=== PATIENT | female | born 1990 | race African-American/Black ===

== ENCOUNTER 2017-04-07 08:51 | Emergency (ER) | payer MEDICAID, OTHER ==
[~2017-04-07] VITALS: Ht 170.2 cm; Wt 99.8 kg
--- NOTE | 2017-04-07 09:19 | Emergency Room Report ---
History of Present Illness General Chief Complaint: Skin Rash/Abscess Source: Patient Present Illness HPI The patient presents with right sided swelling and pain in her throat. 3 weeks ago she had a peritonsillar abscess that was aspirated with a needle. She continued to have drainage after the aspiration. She was treated with 10 days of Augmentin and 5 days of dexamethasone. It got better. She started to have recurrence of pain. It started draining again last night. She has no change in her voice and the pain is not severe at this time. She denies any fevers or chills. She has no trouble swallowing. No pain with opening her mouth. 2 months ago the patient delivered a baby boy. There no complications with the delivery. She's breast-feeding at this time. No NVD, dysuria, abdominal pain, cough, rashes. 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 Reviewed Nursing Documentation: PMH: Agreed, PSxH: Agreed Nursing Documentation-PMH Past Medical History: No Stated History Review of Systems All Other Systems: negative except mentioned in HPI Physical Exam Vital Signs Date Time Temp Pulse Resp B/P (MAP) Pulse Ox O2 Delivery O2 Flow Rate FiO2 04/07/17 08:57 97.8 75 16 128/78 97 Room Air 97.9 Sp02 EP Interpretation: reviewed, normal General Appearance: well appearing, no apparent distress, GCS 15 Head: normocephalic, atraumatic Eyes: bilateral eye normal inspection, bilateral eye PERRL ENT: hearing grossly normal, normal voice, moist mucus membranes, tonsillar swelling - R with exudate, airway patent Neck: full range of motion, supple, no bony tend Respiratory: lungs clear, no respiratory distress, speaking full sentences Gastrointestinal: normal inspection Musculoskeletal: gait/station normal Neurologic: alert, grossly normal Psychiatric: mood/affect normal Skin: no rash Medical Decision Making Diagnostic Impression: Primary Impression: Peritonsillar abscess Additional Impression: Normal breast feeding ER Course Patient presents with a peritonsillar abscess. She has no problems opening her mouth been no change in voice at this time and pain is minimal. There was spontaneous drainage last night. At this point incision and drainage or aspiration is not indicated. The patient will be retreated with Augmentin and dexamethasone. She is also given referrals to ear nose and throat specialties. Discussed pumping and dumping. Also probability of thrush in infant. Also discussed that if infection is worsening, might need I and D (doubtful at this time). The patient is stable for outpatient observation and treatment. Status: improved Disposition: HOME, SELF-CARE Condition: Improved Scripts Dexamethasone (DEXAMETHASONE) 4 Mg Tablet 4 MG PO DAILY, #5 TAB Prov: Deonte De La Garza M.D. 04/07/17 Amoxicillin/Potassium Clav 500-125 Tablet* (AUGMENTIN 500-125 TABLET*) 1 Each Tablet 1 TAB ORAL THREE TIMES A DAY, #21 TAB Prov: Deonte De La Garza M.D. 04/07/17 Deonte De La Garza M.D. Apr 07, 2017 09:19
[2017-04-07] MEDS ORDERED: AUGMENTIN 500-1 EACH ORAL (09:23)
[2017-04-07] MEDS ORDERED: DEXAMETHASONE4 M1 PO (09:23)
[2017-04-07 09:35] VITALS: BP 128/78
[2017-04-07 09:36] VITALS: BP 128/78
== END 2017-04-07 09:39 | disposition home or self-care (01) ==
LOC: EMR 09:24
DX: J36 Peritonsillar abscess (principal)
CPT/HCPCS: 99283

== ENCOUNTER 2019-07-28 13:32 | Emergency (ER) | payer OTHER ==
[~2019-07-28] VITALS: Ht 167.6 cm; Wt 78.0 kg
[~2019-07-28 13:32] MED LIST: AUGMENTIN 500-1 EACH ORAL; DEXAMETHASONE4 M1 PO
[2019-07-28 13:47] VITALS: BP 112/73
--- NOTE | 2019-07-28 13:47 | NUR ---
ED Nurse Note: pt ambulated into ed from home [place] vaginal redness and itching x 1 week. Pt states itching has subsided but notes vaginal discharge. Awaiting ERMD at bedside
--- NOTE | 2019-07-28 13:59 | NUR ---
ED Nurse Note: ERMD at bedside
--- NOTE | 2019-07-28 14:04 | Emergency Room Report ---
History of Present Illness General Chief Complaint: Vaginal Source: Patient Present Illness HPI 29-year-old female with no symptom past medical history here complaining of 1 week of white clumpy vaginal discharge and pruritus. Patient reports that she has a history of recurrent yeast infection. Denies any fishy odor. Reports that she has been using [id number] Monistat with some improvement. Denies dysuria urinary symptoms. Reports that she is sexually active with her . Is requesting STD testing however when told that we do offer her the treatment she decides to rather be tested first and I gave her a list of STD clinics to go get get tested. Denies fever and chills, nausea vomiting, chest pain, and other associate symptoms. Denies . 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 Patient History Past Medical History: see triage record Past Surgical History: none Pertinent Family History: none Last Menstrual Period: 07/08/19 Now: No Immunizations: UTD Reviewed Nursing Documentation: PMH: Agreed; PSxH: Agreed Nursing Documentation-PMH Past Medical History: No History, Except For Review of Systems All Other Systems: negative except mentioned in HPI Physical Exam Vital Signs Date Time Temp Pulse Resp B/P (MAP) Pulse Ox O2 Delivery O2 Flow Rate FiO2 07/28/19 13:37 98.2 65 17 112/73 (86) 100 Room Air Sp02 EP Interpretation: reviewed, normal General Appearance: no apparent distress, alert, GCS 15, non-toxic Head: normocephalic, atraumatic Eyes: bilateral eye normal inspection, bilateral eye PERRL ENT: hearing grossly normal, normal pharynx, no angioedema, normal voice Neck: full range of motion, supple/symm/no masses Respiratory: chest non-tender, lungs clear, normal breath sounds, speaking full sentences Cardiovascular #1: regular rate, rhythm, no edema Gastrointestinal: normal bowel sounds, non tender, soft, non-distended, no guarding, no rebound Genitourinary: no CVA tenderness, other - No irritation, ulceration or lesions noted in external vaginal canal Musculoskeletal: back normal Neurologic: alert, motor strength/tone normal, oriented x3, sensory intact, responsive, speech normal Psychiatric: judgement/insight normal, memory normal, mood/affect normal, no suicidal/homicidal ideation Skin: no rash Lymphatic: no adenopathy Medical Decision Making PA Attestation All my diagnosis and treatment plans were reviewed ad discussed with my supervising physician Dr. Crum Diagnostic Impression: Primary Impression: Vaginitis ER Course 29-year-old female with no symptom past medical history here complaining of 1 week of white clumpy vaginal discharge and pruritus. Patient reports that she has a history of recurrent yeast infection. Denies any fishy odor. Reports that she has been using [id number] Monistat with some improvement. Denies dysuria urinary symptoms. Reports that she is sexually active with her . Is requesting STD testing however when told that we do offer her the treatment she decides to rather be tested first and I gave her a list of STD clinics to go get get tested. Denies fever and chills, nausea vomiting, chest pain, and other associate symptoms. Denies . Ddx considered but are not limited to: UTI, pyelonephritis, urinary incontinence , prolapsed bladder, vaginitis Vital signs: are WNL, pt. is afebrile H&PE are most consistent with: Vaginitis most likely due to yeast infection ORDERS: No urine needed at this time patient does not experience any urinary symptoms, Diflucan, clotrimazole cream ED INTERVENTIONS: None required at this time. DISCHARGE: At this time pt. is stable for d/c to home. Will provide printed patient care instructions, and any necessary prescriptions. Care plan and follow up instructions have been discussed with the patient prior to discharge. Gave a list of STD clinics, take medication as directed, follow primary doctor , if worsening symptoms return to the emergency room EKG Diagnostic Results ASA given to the pt in ED: No Last Vital Signs Date Time Temp Pulse Resp B/P (MAP) Pulse Ox O2 Delivery O2 Flow Rate FiO2 07/28/19 13:37 98.2 65 17 112/73 (86) 100 Room Air Disposition: HOME, SELF-CARE Condition: Stable Scripts Clotrimazole* (LOTRIMIN*) 15 Gm Cream..g. 1 APPLIC TOPIC TWICE A DAY, #15 GM Prov: Jannet Cardenas 07/28/19 Fluconazole (FLUCONAZOLE) 150 Mg Tablet 150 MG ORAL ONCE for 1 Day, #2 TAB 0 Refills take first tablet today, if no improvement in 1 week, take the second tablet Prov: Jannet Cardenas 07/28/19 Patient Instructions: Vaginitis, [id number] Additional Instructions: Take medication as directed, if worsening symptoms return to the emergency room. Follow-up primary doctor, a list of STD clinics with attached to your aftercare instructions Jannet Cardenas Jul 28, 2019 14:04
--- NOTE | 2019-07-28 14:05 | NUR ---
ED Nurse Note: UA sent to lab
[2019-07-28] MEDS ORDERED: CLOTRIMAZOLE15 GM TOPIC (14:06)
[2019-07-28] MEDS ORDERED: FLUCONAZOLE150 MG ORAL (14:06)
[2019-07-28 14:22] VITALS: BP 112/73
--- NOTE | 2019-07-28 14:22 | NUR ---
ER DISCHARGE NOTE: Patient is cleared to be discharged home per ERMD, pt is aox4, on room air, with stable vital signs. pt was given dc and prescription instructions, pt was able to verbalize understanding, pt id band removed. pt is able to ambulate with steady gait. pt took all belongings.
== END 2019-07-28 14:22 | disposition home or self-care (01) ==
LOC: EMR 13:45
DX: N76.0 Acute vaginitis (principal)
CPT/HCPCS: 99282

== ENCOUNTER 2020-03-14 09:40 | Emergency (ER) | payer MEDICAID, OTHER ==
[~2020-03-14] VITALS: Ht 162.6 cm; Wt 77.1 kg
[~2020-03-14 09:40] MED LIST changes: +CLOTRIMAZOLE15 GM TOPIC; +FLUCONAZOLE150 MG ORAL
[2020-03-14 10:12] VITALS: BP 110/70
[2020-03-14] MEDS ORDERED: AUGMENTIN 875-1 EAC1 ORAL (10:14)
[2020-03-14] MEDS ORDERED: LIDOCAINE VISC100 ML ORAL (10:14)
[2020-03-14] MEDS ORDERED: Augmentin 875mg Tab ORAL ONE (10:15)
--- NOTE | 2020-03-14 10:19 | Emergency Room Report ---
History of Present Illness General Chief Complaint: Sore Throat Source: Patient Present Illness HPI Patient is a 29-year-old female presents for increased sore throat for the past 4 to 5 days. Reports of increased pain with swallowing. Reports having some slight change to her voice. Denies any fever. Prior history of tonsillar abscess. Denies any cough. Slight increased left-sided ear pain intermittentl y. Denies any chance of . Had been having intermittent left-sided ear popping. Denies any neck stiffness. Denies prior history of immunocompromise. 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 Patient History Past Medical History: see triage record Now: No - 02/16/20 Reviewed Nursing Documentation: PMH: Agreed; PSxH: Agreed Nursing Documentation-PMH Past Medical History: No Stated History Review of Systems All Other Systems: negative except mentioned in HPI Physical Exam Vital Signs Date Time Temp Pulse Resp B/P (MAP) Pulse Ox O2 Delivery O2 Flow Rate FiO2 03/14/20 10:04 97.9 72 16 110/70 (83) 98 Room Air Sp02 EP Interpretation: reviewed, normal General Appearance: normal inspection, well appearing, no apparent distress, alert, GCS 15 Head: atraumatic ENT: normal ENT inspection, hearing grossly normal, normal voice, tonsillar swelling - Left-sided tonsillar swelling and erythema, no uvular deviation, no trismus Neck: normal inspection, full range of motion, supple, no bony tend Respiratory: normal inspection, lungs clear, normal breath sounds, no respiratory distress, no retraction, no wheezing Cardiovascular #1: regular rate, rhythm, no edema Gastrointestinal: normal inspection, normal bowel sounds, non tender, soft, no guarding, no hernia Genitourinary: no CVA tenderness Musculoskeletal: normal inspection, back normal, normal range of motion Neurologic: alert, responsive, speech normal, normal inspection Psychiatric: normal inspection, judgement/insight normal, mood/affect normal Medical Decision Making Diagnostic Impression: Primary Impression: Acute tonsillitis ER Course Patient presents for sore throat. Differential diagnosis include was not limited to tonsillitis, abscess, ear infection among others. Patient has a benign exam and does not appear to require any imaging or laboratory testing at this time. Patient appears to have a bacterial tonsillitis will be treated with antibiotics. She was given oral steroids after informing risk benefits and alternatives. Patient was advised to follow-up with primary care physician for recheck. She is advised to gargle with salt water. She is to return if worse. This medical record is generated with [employer] customs broker software. There may be some customs broker discrepancies related to use of this software Last Vital Signs Date Time Temp Pulse Resp B/P (MAP) Pulse Ox O2 Delivery O2 Flow Rate FiO2 03/14/20 10:12 97.9 16 110/70 98 Room Air 03/14/20 10:04 72 Status: improved Disposition: HOME, SELF-CARE Condition: Stable Scripts Lidocaine HCl 2% Viscous (Lidocaine HCl 2% Viscous) 100 Ml Solution 15 ML ORAL QID for pain, #100 ML Prov: Cesar Crum MD 03/14/20 Amoxicillin/Potassium Clav 875-125* (AUGMENTIN 875-125 TABLET*) 1 Each Tablet 1 TAB ORAL TWICE A DAY, #14 TAB Prov: Cesar Crum MD 03/14/20 Referrals: NON PHYSICIAN (PCP) Patient Instructions: Tonsillitis Additional Instructions: Follow up with primary care doctor for recheck. Gargle with salt water three times a day. Return if worse. Cesar Crum MD Mar 14, 2020 10:19
[2020-03-14 10:47] VITALS: BP 120/70
--- NOTE | 2020-03-14 10:49 | NUR ---
discharged home with instruction and rx follow up with pmd
== END 2020-03-14 10:50 | disposition home or self-care (01) ==
LOC: EMR 09:44
DX: J03.90 Acute tonsillitis, unspecified (principal)
CPT/HCPCS: J8540; Z7502; 99282

== ENCOUNTER 2020-03-16 20:32 | Emergency (ER) | payer MEDICAID ==
[~2020-03-16] VITALS: Ht 170.2 cm; Wt 78.5 kg
[~2020-03-16 20:32] MED LIST changes: +AUGMENTIN 875-1 EAC1 ORAL; +LIDOCAINE VISC100 ML ORAL
[2020-03-16] MEDS ORDERED: Omnipaque-300 100ml vial INJ PRN (21:00)
[2020-03-16] MEDS ORDERED: cefTRIAXone 1 GM in NS 55 ML IVPB ONE (21:00)
--- NOTE | 2020-03-16 21:00 | NUR ---
ED Nurse Note: Recieved pt walk in from home with c/o severe sore throat, pt was seen here 2 days ago, placed on oral antibiotics but states pain has worsened and she cant eat, swallowing is painful, no swelling noted, no sob or labored breathing, also states pain radiated to ear, pt states has hx of abcess and she thinks it is there again, pain at 7/10, no nausea, fevers, cough or any other complaints or discomforts.
[2020-03-16 21:42] LABS: BASOPHILS % (AUTO) 1.1 % (0.0-2.0); EOSINOPHILS % (AUTO) 1.1 % (0.0-3.0); HEMOGLOBIN 11.9 G/DL (12.0-16.0); LYMPHOCYTES % (AUTO) 29.3 % (20.0-45.0); MEAN CORPUSCULAR VOLUME 93 FL (80-99); MONOCYTES % (AUTO) 12.4 % (1.0-10.0); NEUTROPHILS % (AUTO) 56.1 % (45.0-75.0); PLATELET COUNT 246 K/UL (150-450); RED BLOOD COUNT 4.08 M/UL (4.20-5.40); WHITE BLOOD COUNT 7.1 K/UL (4.8-10.8)
[2020-03-16 21:52] LABS: ANION GAP 8 mmol/L (5-15); BLOOD UREA NITROGEN 9 mg/dL (7-18); CALCIUM 8.9 MG/DL (8.5-10.1); CARBON DIOXIDE 27 MMOL/L (21-32); CHLORIDE 105 MMOL/L (98-107); CREATININE 0.8 MG/DL (0.55-1.30); POTASSIUM 3.6 MMOL/L (3.5-5.1); SODIUM 140 MMOL/L (136-145)
[2020-03-16 21:57] LABS: ALANINE AMINOTRANSFERASE 12 U/L (12-78); ALBUMIN 3.3 G/DL (3.4-5.0); ALBUMIN/GLOBULIN RATIO 0.7 (1.0-2.7); ALKALINE PHOSPHATASE 49 U/L (46-116); ASPARTATE AMINO TRANSFERASE 11 U/L (15-37); BILIRUBIN,TOTAL 0.3 MG/DL (0.2-1.0)
[2020-03-16 22:30] VITALS: BP 119/72
--- NOTE | 2020-03-16 23:00 | NUR ---
ED Nurse Note: Pt completed IV antibiotics, tolerated well, no s/s of adverse reaction noted, IV site patent, pt waiting for ordered CT-Scan, declines need for pain meds, no acute changes or increased distress noted.
--- NOTE | 2020-03-16 23:11 | Emergency Room Report ---
History of Present Illness General Chief Complaint: Sore Throat Source: Patient (Cesar Crum MD) Present Illness HPI Patient is a 29-year-old female who presented for increased sore throat for approximately 1 week. Patient had gradual onset of symptoms. Reports having worsening sore throat. Had by seen by me 2 days ago. started on Augmentin as well as dexamethasone. Patient was taking Excedrin due to significant pain. Prior history of peritonsillar abscess drainage. (Cesar Crum MD) Allergies: Coded Allergies: No Known Allergies (Unverified , 04/07/17) COVID-19 Screening Contact w/high risk pt: No Recent Travel to affected area: No Experienced COVID-19 symptoms?: No COVID-19 Testing performed EXEC. CREATIVE DIRECTOR: No (Cesar Crum MD) Patient History Past Medical History: see triage record Last Menstrual Period: 03/03/20 Reviewed Nursing Documentation: PMH: Agreed; PSxH: Agreed (Cesar Crum MD) Nursing Documentation-PMH Past Medical History: No Stated History (Cesar Crum MD) Review of Systems All Other Systems: negative except mentioned in HPI (Cesar Crum MD) Physical Exam Vital Signs Date Time Temp Pulse Resp B/P (MAP) Pulse Ox O2 Delivery O2 Flow Rate FiO2 03/16/20 20:35 97.9 93 18 111/67 (82) 96 Room Air Sp02 EP Interpretation: reviewed, normal General Appearance: normal inspection, well appearing, no apparent distress, alert, GCS 15, non-toxic Head: atraumatic ENT: normal ENT inspection, hearing grossly normal, tonsillar swelling - Increased tonsillar swelling from prior visit, no uvular shift, slight trismus Neck: normal inspection, full range of motion, supple, no bony tend Respiratory: normal inspection, lungs clear, normal breath sounds, no respiratory distress, no retraction, no wheezing Cardiovascular #1: regular rate, rhythm, no edema Gastrointestinal: normal inspection, normal bowel sounds, non tender, soft, no guarding, no hernia Genitourinary: no CVA tenderness Musculoskeletal: normal inspection, back normal, normal range of motion Neurologic: alert, motor strength/tone normal, [employer] III-XII nml as tested, responsive, speech normal, normal inspection Psychiatric: normal inspection, judgement/insight normal, mood/affect normal (Cesar Crum MD) Medical Decision Making Diagnostic Impression: Primary Impression: Tonsillar mass ER Course Patient presented for sore throat. Differential diagnosis includes is not limited to peritonsillar cellulitis, peritonsillar abscess, among others. Because of complexity of patient's case laboratory tests and imaging studies were ordered. Patient had been seen recently had a very been taking oral antibiotics. She was given IV steroids as well as IV Decadron. She reports having some improvement. CT imaging was ordered. Patient was endorsed to Dr. Denny pending imaging studies results. (Cesar Crum MD) ER Course CT neck with IV contrast: Left palatine tonsil mass concerning for necrotic neoplasm versus less likely peritonsillar abscess given lack of reactive and in flammatory findings. Centrally hypodense peripherally enhancing 3.1 x 2.8 x 3.8 cm mass. No significant surrounding inflammatory findings. No cervical chain adenopathy 29-year-old female here with sore throat and difficulty speaking. Patient signed out to me by previous physician. She underwent CT of the neck with IV contrast. 3 x 3 x 4 cm mass concerning for necrotic neoplasm versus peritonsillar abscess. These results were discussed with the patient. She said that she does have a history of peritonsillar abscesses that have been drained two times in the past. She had unremarkable lab work. I discussed the case as well with the on-call radiologist. Recommend admission and ENT evaluation. Patient given Unasyn in the emergency department. Had previously been given ceftriaxone and Decadron. Currently awaiting transfer. 0030: Spoke with Dr. Kay, ENT at [facility]. Discussed case with him. Patient accepted for transfer at [facility]. To be admitted to the medicine team with ENT on consultation. Currently awaiting transfer. 0057: Spoke with Dr. Angela, accepting hospitalist at [facility]. Will accept patient. Awaiting transfer. (Christian Denny M.D.) Last Vital Signs Date Time Temp Pulse Resp B/P (MAP) Pulse Ox O2 Delivery O2 Flow Rate FiO2 03/16/20 20:35 97.9 93 18 111/67 (82) 96 Room Air (Cesar Crum MD) Referrals: [facility],REFERRING (PCP) Cesar Crum MD Mar 16, 2020 23:11 Christian Denny M.D. Mar 17, 2020 00:13
[2020-03-16] MEDS ORDERED: Ampicillin/Sulbactam Sod 3 GM in NS 110 ML IVPB ONE (23:45)
--- NOTE | 2020-03-16 23:56 | Diagnostic Imaging Report ---
EXAM: CT Neck With Intravenous Contrast CLINICAL HISTORY: MASS TECHNIQUE: Axial computed tomography images of the neck with intravenous contrast. CTDI is 139 mGy and DLP is 501.6 mGy-cm. One or more of the following dose reduction techniques were used: automated exposure control, adjustment of the mA and/or kV according to patient size, use of iterative reconstruction technique. COMPARISON: No relevant prior studies available. FINDINGS: Oropharynx: Per discussion with the attending physician, there is concern for peritonsillar pathology; no palpable mass is present on physical exam. No peritonsillar abscess. Hypopharynx: Unremarkable. Larynx: Unremarkable. Normal epiglottis. Trachea: Unremarkable. Retropharyngeal space: Unremarkable. Submandibular/parotid glands: Unremarkable. Glands are normal in size. Thyroid: Unremarkable. No enlarged or calcified nodules. Bones/joints: No acute fracture. Soft tissues: Unremarkable. Vasculature: No acute findings. Lymph nodes: Left palatine tonsil region, centrally hypodense peripherally enhancing 3.1 x 2.8 x 3.8 cm mass axial series 5, image 30. No significant surrounding inflammatory findings. No cervical chain adenopathy. Lung apices: Unremarkable as visualized. Other findings: Otherwise no acute findings. IMPRESSION: 1. Per discussion with the attending physician, there is concern for peritonsillar pathology; no palpable mass is present on physical exam. 2. Left palatine tonsil mass concerning for necrotic neoplasm versus less likely peritonsillar abscess given lack of reactive and inflammatory findings. 3. Recommend head and neck surgical consultation and direct visualization. 4. Otherwise no acute findings. <MYCVCSECTION> Communications: 03/16/20 23:56 Call Doctor Regarding Other, called Dr. Denny on 03/16 23: 56 (-08:00)
[2020-03-17] VITALS: BP 122/74
--- NOTE | 2020-03-17 00:05 | NUR ---
ED Nurse Note: All meds completed, pt tolerated well, pain at 6/10 but pt states she does not need pain meds, v/s stable, no sob or labored breathing noted, saline lock intact and patent, pt being prepared for transfer for surgical procedure for abcess, pt is aware, transfer form signed, will continue to monitor while waiting for transfer info. pt spouse at bedside with permission from MD, all Covid precautions followed.
--- NOTE | 2020-03-17 02:00 | NUR ---
ED Nurse Note: Pt continues to rest quietly in bed, awake and alert, no acute changes or increased distress noted, IV site patent, v/s stable, pt is being transferred to [facility] for continued care and possible surgical procedure for abcess, ambulance eta is 0300, pt continues to decline needing meds, will continue to closely monitor while waiting for transport, pt is being kept NPO.
[2020-03-17 02:10] VITALS: BP 120/69
[2020-03-17 04:00] VITALS: BP 117/73
--- NOTE | 2020-03-17 04:05 | NUR ---
ED Nurse Note: [id number], report called to RAMESH Vail at [facility], pt going to room 4117, ambulance report and all transfer forms given to school bus driver/custodian Zbigniew, pt is awake, alert and oriented x 4, has all belongings, declines pain meds, v/s stable and 02 sat=98% on ra, no sob or labored breathing, nad noted during pt transport.
[2020-03-17 04:15] VITALS: BP 117/73
== END 2020-03-17 04:15 | disposition short-term general hospital (02) ==
LOC: EMR 20:55 → EDBEDREQSVC 03-17 01:19 → EMR 03-17 04:15
DX: J35.9 Chronic disease of tonsils and adenoids, unspecified (principal)
CPT/HCPCS: 36415; 70491; 80053; 81025; 85025; 96365; 96367; 96375; J0295; J0696; J1100; Q9967; Z7502; 99284